=== PATIENT | female | born 1950 | race Caucasian/White ===

== ENCOUNTER → 2020-12-25 | Outpatient (CLI) | payer MEDICARE, MEDICAID ==
[~2020-12-25] MED LIST: LIDOcaine 2% 5ml jelly ONE
== END | disposition home or self-care (01) ==
LOC: WOUND CARE 12:22
PROVIDERS: ATTEND Nurse Practitioner
DX: E11.621 Type 2 diabetes mellitus with foot ulcer (principal); L97.516 Non-pressure chronic ulcer of other part of right foot with bone involvement without evidence of necrosis; E11.65 Type 2 diabetes mellitus with hyperglycemia; E11.21 Type 2 diabetes mellitus with diabetic nephropathy; I10 Essential (primary) hypertension; E78.5 Hyperlipidemia, unspecified; J44.9 Chronic obstructive pulmonary disease, unspecified; F17.210 Nicotine dependence, cigarettes, uncomplicated; F41.9 Anxiety disorder, unspecified; F32.9 Major depressive disorder, single episode, unspecified
CPT/HCPCS: G0463

== ENCOUNTER 2021-01-19 10:54 | Day surgery (SDC) | payer MEDICARE, MEDICAID ==
[~2021-01-19] VITALS: Ht 149.9 cm; Wt 54.6 kg
[2021-01-19] VITALS (9 sets, daily range): BP systolic 153–198; BP diastolic 54–108
[~2021-01-19 10:54] MED LIST changes: +ALPR0.5T9 PO; +ATOR20TA66 PO; +GABA-530 PO; +INSU100V9 SQ; -LIDOcaine 2% 5ml jelly ONE; +LISI2.5T2 PO; +METF-437 PO; +MIRT30TA8 PO; +MONT10TA32 PO; +VANCOMYCIN INJ 1000 MG in NORMAL SALINE 250ml IV.SOLN IV ONE; +famotidine 20mg tablet PO ONE; +ringers solution, lacted 1,000 ML IV SCH
[2021-01-19] MEDS ORDERED: ondansetron/PF 4mg/2ml inj IV ONE (13:45)
[2021-01-19] MEDS ORDERED: BUPIVAcaine/PF 2.5 mg/ml (0.25%) 30ml vial ONE (15:56)
[2021-01-19] MEDS ORDERED: sevoflurane 250ml liquid IH ONE (16:25)
[2021-01-19] MEDS ORDERED: ringers solution, lacted 1,000 ML IV SCH (16:25)
[2021-01-19] MEDS ORDERED: HYDROmorphone/PF 0.2 MG/ML SYRINGE IV PRN (16:25)
[2021-01-19] MEDS ORDERED: morphine 2 MG/ML inj. syringe IV PRN (16:25)
[2021-01-19] MEDS ORDERED: ondansetron/PF 4mg/2ml inj IV PRN (16:25)
[2021-01-19] MEDS ORDERED: midazolam 1 mg/ML 2ml injection ONE (16:27)
[2021-01-19] MEDS ORDERED: fentaNYL/PF 50MCG/1 ML 2ML syringe ONE (16:27)
[2021-01-19] MEDS ORDERED: propofol inj 20 ML IV ONE (16:42)
[2021-01-19] MEDS ORDERED: LIDOcaine 1%/PF 5ML 10 MG/ML VIAL ONE (16:42)
[2021-01-19] MEDS ORDERED: glycopyrrolate 0.2mg/ml inj ONE (16:43)
[2021-01-19] MEDS ORDERED: ondansetron/PF 4mg/2ml inj ONE (16:43)
[2021-01-19] MEDS ORDERED: rocuronium 10mg/ml inj IV ONE (16:43)
[2021-01-19] MEDS ORDERED: neostigmine methylsulfate 1 MG/ML 10ml vial ONE (16:43)
--- NOTE | 2021-01-19 17:26 | NUR ---
Received from OR via [facility] , accompanied by Anesthesiologist CHRIS and report given by Anesthesiolgist. PATIENT WITH 22G PIV IN LEFT UE RUNNING NS AT 10. PATIENT DENIES PAIN. LEFT FOOT DRESSING PING BANDAGE BLEEDING SLOWLY AT BALL OF FOOT. VS WNL CURRENTLY. 10L MASK ON WITH 100% SATURATIONS. Addendum: 01/19/21 at 1739 by Murray Mckinley RN, RN Amended: Links added.
[2021-01-19] MEDS ORDERED: labetalol 20mg/4ml (5mg/ml) syringe IV PRN (17:35)
[2021-01-19] MEDS ORDERED: ePHEDrine 50MG/ML INJ. ONE (17:38)
--- NOTE | 2021-01-19 18:36 | NUR ---
All dc criteria for discharge home has been met. IV taken out without complications. All questions answered regarding dc paperwork. Vss. Significant other present to take patient home. Dressings cdi and vital signs stable. Taken out via wheelchair to personal vehicle where patient taken home by family/friend. ASSISTED PATIENT IN DONNING BRACE. 2 STRAPS AT DISTAL END OF BOOT MODIFIED 2' SHORT STRAPS. GOOD FITMENT IN BOOT ACHIEVED. VSS. ASSISTED IN DRESSING. SPOKE TO MD AGUILAR WHO STATES IT'S OKAY TO BEAR WEIGHT TO THE HEEL OF THE LEFT LE ONLY. PATIENT STATES THAT SHE WILL COMPLY. DEMONSTRATED HEEL WEIGHT BEARING UPON TRANSFERS TO WHEELCHAIR AND TO VEHICLE. REVIEWED ALL DC INSTRUCTIONS WITH SISTER WHO DROVE PATIENT HOME. Addendum: 01/19/21 at 1927 by Murray Mckinley RN, RN Amended: Links added.
[2021-01-19 19:07] LABS: ISTAT CREATININE 0.9 mg/dL (0.6-1.1); ISTAT HGB 12.9 g/dl (12.0-16.0); ISTAT IONIZED CALCIUM 1.14 mmol/L (1.03-1.32)
--- NOTE | 2021-01-19 19:29 | NUR ---
ADDENDUM: MD CHRIS NO WITH RESULTS OF ISTAT AND CONFIRMS PATIENT MAY GO HOME. Addendum: 01/19/21 at 1930 by Murray Mckinley RN RN Amended: Links added.
== END 2021-01-19 18:36 | disposition home or self-care (01) ==
LOC: PAS 10:54
PROVIDERS: ATTEND Podiatrist Foot & Ankle Surgery
DX: E11.621 Type 2 diabetes mellitus with foot ulcer (principal); L97.522 Non-pressure chronic ulcer of other part of left foot with fat layer exposed; M25.872 Other specified joint disorders, left ankle and foot; F17.210 Nicotine dependence, cigarettes, uncomplicated; J44.9 Chronic obstructive pulmonary disease, unspecified; I10 Essential (primary) hypertension; F41.9 Anxiety disorder, unspecified; F32.9 Major depressive disorder, single episode, unspecified; K21.9 Gastro-esophageal reflux disease without esophagitis; Z88.0 Allergy status to penicillin; Z79.899 Other long term (current) drug therapy; Z79.4 Long term (current) use of insulin; Z98.49 Cataract extraction status, unspecified eye; Z96.652 Presence of left artificial knee joint
CPT/HCPCS: 11042; 28315; 80047; 82948; 87070; 87077; 87186; A6223; J2250; J2405; J2704; J2710; J3010; J3370; J3490; J7120; L4360; A4215; A4618; A6449; A7000

== ENCOUNTER 2021-03-28 08:30 | Outpatient (CLI) | payer MEDICARE, MEDICAID ==
[~2021-03-28] VITALS: Ht 149.9 cm; Wt 54.4 kg
[~2021-03-28 08:30] MED LIST changes: +LIDOcaine 2% 5ml jelly ONE; +MIRT-88 PO; -MIRT30TA8 PO; -VANCOMYCIN INJ 1000 MG in NORMAL SALINE 250ml IV.SOLN IV ONE; -famotidine 20mg tablet PO ONE; -ringers solution, lacted 1,000 ML IV SCH
[2021-03-28] MEDS ORDERED: METF-436 PO (10:10)
[2021-03-28] MEDS ORDERED: ASPI-83 PO (10:11)
[2021-03-28 10:34] LABS: BASOPHILS # (AUTO) 0.1 X10'3 (0-0.2); BASOPHILS % (AUTO) 1.1 % (0-1); EOSINOPHILS # (AUTO) 1.6 X10'3 (0-0.9); EOSINOPHILS % (AUTO) 16.1 % (0-6); LYMPHOCYTES # (AUTO) 2.1 X10'3 (1.1-4.8); MEAN CORPUSCULAR HEMOGLOBIN 28.5 PG (27.0-31.0); MEAN CORPUSCULAR HGB CONC 33.5 g/dL (33.0-36.5); MEAN CORPUSCULAR VOLUME 85.2 FL (78-98); MEAN PLATELET VOLUME 7.8 FL (7.4-10.4); MONOCYTES # (AUTO) 0.6 X10'3 (0-0.9); NEUTROPHILS # (AUTO) 5.7 X10'3 (1.8-7.7); NEUTROPHILS % (AUTO) 55.8 % (42-75); PRE OP HEMATOCRIT 36.2 % (35.0-45.0); PRE OP HEMOGLOBIN 12.1 g/dL (12.0-16.0); PRE OP PLATELET COUNT 230 X10'3 (140-440); RED BLOOD COUNT 4.25 X10'6 (4.20-5.60); RED CELL DISTRIBUTION WIDTH 14.4 % (11.5-14.5)
[2021-03-28 10:50] LABS: ALBUMIN 3.5 G/DL (3.4-5.0); ALBUMIN/GLOBULIN RATIO 0.8 (1.1-1.5); BLOOD UREA NITROGEN 22 MG/DL (7-18); BUN/CREATININE RATIO 22.2 (6.6-38.0); CHLORIDE 103 MMOL/L (99-107); CREATININE 0.99 MG/DL (0.40-0.90); PRE OP ALT 10 U/L (30-65); PRE OP ANION GAP 7 (8-16); PRE OP AST 12 U/L (10-37); PRE OP BILIRUB, TOTAL 0.3 MG/DL (0.0-1.0); PRE OP GLUCOSE 122 MG/DL (70-104); PRE OP POTASSIUM 4.7 MMOL/L (3.4-5.1); PRE OP SODIUM 137 MMOL/L (135-145); TOTAL CARBON DIOXIDE 26.6 MMOL/L (24-32); TOTAL PROTEIN 7.7 G/DL (6.4-8.2); eGFR 55 ML/MIN
[2021-03-28 11:16] LABS: ALKALINE PHOSPHATASE 202 IU/L (46-116)
[2021-03-30] MEDS ORDERED: ringers solution, lacted 1,000 ML IV SCH (05:00)
[2021-03-30] MEDS ORDERED: VANCOMYCIN INJ 1000 MG in NORMAL SALINE 250ml IV.SOLN IV ONE (05:30)
[2021-03-30] MEDS ORDERED: famotidine 20mg tablet PO ONE (05:30)
[2021-03-30] MEDS ORDERED: DOXY100C43 PO (13:22)
[2021-03-30] MEDS ORDERED: PRED20TA PO (13:22)
[2021-03-30] MEDS ORDERED: ALBU18HF2 INH (13:22)
== END 2021-03-28 23:59 | disposition home or self-care (01) ==
LOC: PRE-OP 08:30 → EDSTATUS 03-30 13:15
PROVIDERS: ATTEND Podiatrist Foot & Ankle Surgery
DX: Z01.818 Encounter for other preprocedural examination (principal); F17.210 Nicotine dependence, cigarettes, uncomplicated; J44.9 Chronic obstructive pulmonary disease, unspecified; F32.9 Major depressive disorder, single episode, unspecified; F41.9 Anxiety disorder, unspecified; I10 Essential (primary) hypertension; K21.9 Gastro-esophageal reflux disease without esophagitis; E11.9 Type 2 diabetes mellitus without complications; Z88.0 Allergy status to penicillin; Z96.652 Presence of left artificial knee joint; Z98.890 Other specified postprocedural states; Z79.84 Long term (current) use of oral hypoglycemic drugs; Z79.899 Other long term (current) drug therapy; Z79.82 Long term (current) use of aspirin
CPT/HCPCS: 36415; 71046; 80053; 85025; 93005; J3370; J7120

== ENCOUNTER → 2021-03-30 | Emergency (ER) | payer MEDICARE, MEDICAID ==
[~2021-03-30] VITALS: Ht 149.9 cm; Wt 54.5 kg
[~2021-03-30] MED LIST changes: +ALBU18HF2 INH; +ASPI-83 PO; -ATOR20TA66 PO; +CefTRIAXone 1000mg IM Kit (w/lidocaine diluent) IM ONE; +CefTRIAXone 2gm/D5W 50ml BAG 50 ML IV ONE; +DOXY100C43 PO; +DOXYCYCLINE 100MG CAPSULE PO STA; -GABA-530 PO; -LIDOcaine 2% 5ml jelly ONE; -LISI2.5T2 PO; +METF-436 PO; -METF-437 PO; -MIRT-88 PO; +MIRT30TA8 PO; -MONT10TA32 PO; +PRED20TA PO; +vancomycin/NS 1 GM ADD-VANTAGE 250 ML IV ONE
[2021-03-30 12:18] LABS: ALANINE AMINOTRANSFERASE 10 U/L (12-78); ALBUMIN 3.3 G/DL (3.4-5.0); ALBUMIN/GLOBULIN RATIO 0.8 (1.1-1.5); ALKALINE PHOSPHATASE 208 IU/L (46-116); ANION GAP 11 (8-16); ASPARTATE AMINO TRANSFERASE 11 U/L (10-37); BILIRUBIN,TOTAL 0.2 MG/DL (0.1-1.0); BLOOD UREA NITROGEN 17 MG/DL (7-18); BUN/CREATININE RATIO 18.1 (6.6-38.0); CHLORIDE 103 MMOL/L (99-107); CREATININE 0.94 MG/DL (0.40-0.90); GLUCOSE 119 MG/DL (70-104); POTASSIUM 4.5 MMOL/L (3.5-5.1); SODIUM 138 MMOL/L (135-145); TOTAL PROTEIN 7.7 G/DL (6.4-8.2); eGFR 59 ML/MIN
[2021-03-30 12:27] LABS: MAGNESIUM 1.9 MG/DL (1.5-2.4)
--- NOTE | 2021-03-30 12:36 | NUR ---
DIFFICULT IV START, PAGED PICC RN
[2021-03-30 12:54] LABS: BASOPHILS # (AUTO) 0.1 X10'3 (0-0.2); BASOPHILS % (AUTO) 1.3 % (0-1); EOSINOPHILS # (AUTO) 2.6 X10'3 (0-0.9); EOSINOPHILS % (AUTO) 22.4 % (0-6); HEMATOCRIT 36.8 % (35.0-45.0); LYMPHOCYTES # (AUTO) 1.8 X10'3 (1.1-4.8); LYMPHOCYTES % (AUTO) 15.7 % (21-51); MEAN CORPUSCULAR HEMOGLOBIN 28.4 PG (27.0-31.0); MEAN CORPUSCULAR HGB CONC 32.8 g/dL (33.0-36.5); MEAN CORPUSCULAR VOLUME 86.7 FL (78-98); MEAN PLATELET VOLUME 7.8 FL (7.4-10.4); MONOCYTES # (AUTO) 0.5 X10'3 (0-0.9); MONOCYTES % (AUTO) 4.8 % (2-12); NEUTROPHILS # (AUTO) 6.4 X10'3 (1.8-7.7); NEUTROPHILS % (AUTO) 55.8 % (42-75); PLATELET COUNT 240 X10'3 (140-440); RED BLOOD COUNT 4.24 X10'6 (4.20-5.60); RED CELL DISTRIBUTION WIDTH 14.2 % (11.5-14.5); WHITE BLOOD COUNT 11.4 X10'3 (4.5-11.0)
[2021-03-30 13:11] LABS: CLARITY,URINE CLEAR (Clear); COLOR,URINE STRAW (Yellow); GLUCOSE, URINE 100 mg/dl (Neg); KETONES,URINE NEGATIVE (Neg); LEUKOCYTE ESTERASE ,URINE NEGATIVE (Neg); NITRITES, URINE NEGATIVE (Neg); OCCULT BLOOD,URINE NEGATIVE (Neg); PROTEIN,URINE NEGATIVE (Neg); UROBILINOGEN,URINE 0.2 E.U/dL (0.2-1.0)
[2021-03-30 13:14] LABS: UA COLLECTION TYPE CLN CATCH MIDSTREAM
[2021-03-30 13:24] LABS: C-REACTIVE PROTEIN 1.3 MG/DL (0.0-0.5)
[2021-03-30 13:47] VITALS: BP 164/82
== END | disposition home or self-care (01) ==
LOC: ER 10:41
DX: J18.9 Pneumonia, unspecified organism (principal); R91.8 Other nonspecific abnormal finding of lung field; J44.9 Chronic obstructive pulmonary disease, unspecified; E11.9 Type 2 diabetes mellitus without complications; F17.200 Nicotine dependence, unspecified, uncomplicated; Z98.890 Other specified postprocedural states; Z88.0 Allergy status to penicillin; Z79.2 Long term (current) use of antibiotics; Z79.4 Long term (current) use of insulin
CPT/HCPCS: 36415; 71046; 80053; 81003; 82728; 83605; 83615; 83735; 83880; 84145; 85025; 85384; 86140; 87040; 93005; 96372; 99285; 99406; J0696

== ENCOUNTER 2021-06-08 13:07 | Day surgery (SDC) | payer MEDICARE, MEDICAID ==
[2021-06-04 16:03] LABS: BASOPHILS # (AUTO) 0.1 X10'3 (0-0.2); BASOPHILS % (AUTO) 0.9 % (0-1); EOSINOPHILS # (AUTO) 0.3 X10'3 (0-0.9); EOSINOPHILS % (AUTO) 2.8 % (0-6); LYMPHOCYTES # (AUTO) 2.9 X10'3 (1.1-4.8); MEAN CORPUSCULAR HEMOGLOBIN 29.4 PG (27.0-31.0); MEAN CORPUSCULAR HGB CONC 33.9 g/dL (33.0-36.5); MEAN CORPUSCULAR VOLUME 86.7 FL (78-98); MEAN PLATELET VOLUME 8.5 FL (7.4-10.4); MONOCYTES # (AUTO) 0.6 X10'3 (0-0.9); MONOCYTES % (AUTO) 6.5 % (2-12); NEUTROPHILS # (AUTO) 5.9 X10'3 (1.8-7.7); NEUTROPHILS % (AUTO) 59.8 % (42-75); PRE OP HEMATOCRIT 34.4 % (35.0-45.0); PRE OP HEMOGLOBIN 11.7 g/dL (12.0-16.0); PRE OP PLATELET COUNT 209 X10'3 (140-440); RED BLOOD COUNT 3.97 X10'6 (4.20-5.60); RED CELL DISTRIBUTION WIDTH 14.4 % (11.5-14.5)
[2021-06-04 16:09] LABS: ALBUMIN 3.6 G/DL (3.4-5.0); ALBUMIN/GLOBULIN RATIO 0.9 (1.1-1.5); ALKALINE PHOSPHATASE 182 IU/L (46-116); BLOOD UREA NITROGEN 28 MG/DL (7-18); BUN/CREATININE RATIO 16.5 (6.6-38.0); CALCIUM 8.5 MG/DL (8.5-10.1); CHLORIDE 106 MMOL/L (99-107); PRE OP ALT 9 U/L (30-65); PRE OP ANION GAP 9 (8-16); PRE OP AST 9 U/L (10-37); PRE OP BILIRUB, TOTAL 0.3 MG/DL (0.0-1.0); PRE OP GLUCOSE 112 MG/DL (70-104); PRE OP POTASSIUM 4.3 MMOL/L (3.4-5.1); PRE OP SODIUM 140 MMOL/L (135-145); TOTAL CARBON DIOXIDE 25.2 MMOL/L (24-32); TOTAL PROTEIN 7.5 G/DL (6.4-8.2); eGFR 30 ML/MIN
[2021-06-04 16:15] LABS: CLARITY,URINE CLEAR (Clear); COLOR,URINE YELLOW (Yellow); GLUCOSE, URINE NEGATIVE (Neg); KETONES,URINE NEGATIVE (Neg); LEUKOCYTE ESTERASE ,URINE NEGATIVE (Neg); NITRITES, URINE NEGATIVE (Neg); OCCULT BLOOD,URINE NEGATIVE (Neg); PH,URINE 5.5 (4.8-8.0); PROTEIN,URINE NEGATIVE (Neg); UROBILINOGEN,URINE 0.2 E.U/dL (0.2-1.0)
[2021-06-04 17:15] LABS: UA COLLECTION TYPE NON-SPECIFIED
[2021-06-08] VITALS (8 sets, daily range): BP systolic 149–166; BP diastolic 60–103
[~2021-06-08] VITALS: Ht 149.9 cm; Wt 54.2 kg
[~2021-06-08 13:07] MED LIST changes: -ASPI-83 PO; -CefTRIAXone 1000mg IM Kit (w/lidocaine diluent) IM ONE; -CefTRIAXone 2gm/D5W 50ml BAG 50 ML IV ONE; -DOXY100C43 PO; -DOXYCYCLINE 100MG CAPSULE PO STA; -MIRT30TA8 PO; -PRED20TA PO; +VANCOMYCIN INJ 1000 MG in NORMAL SALINE 250ml IV.SOLN IV ONE; +famotidine 20mg tablet PO ONE; +ringers solution, lacted 1,000 ML IV SCH; -vancomycin/NS 1 GM ADD-VANTAGE 250 ML IV ONE
[2021-06-08] MEDS ORDERED: bacitracin 15gm ointment TP ONE ×2 (16:22→17:13)
[2021-06-08] MEDS ORDERED: fentaNYL/PF 50MCG/1 ML 2ML syringe ONE (16:29)
[2021-06-08] MEDS ORDERED: midazolam 1 mg/ML 2ml injection ONE (16:29)
[2021-06-08] MEDS ORDERED: hydrALAZINE 20mg/ml inj. IV PRN (16:35)
[2021-06-08] MEDS ORDERED: sevoflurane 250ml liquid IH ONE (16:35)
[2021-06-08] MEDS ORDERED: fentaNYL/PF 50MCG/1 ML 2ML syringe IV PRN ×2 (16:35)
[2021-06-08] MEDS ORDERED: ringers solution, lacted 1,000 ML IV SCH (16:35)
[2021-06-08] MEDS ORDERED: LIDOcaine 1%/PF 5ML 10 MG/ML VIAL ONE (16:35)
[2021-06-08] MEDS ORDERED: morphine 4 MG/ML inj SYRINge IV PRN (16:35)
[2021-06-08] MEDS ORDERED: morphine 2 MG/ML inj. syringe IV PRN (16:35)
[2021-06-08] MEDS ORDERED: propofol 10mg/ml 20ml vial IV ONE (16:35)
[2021-06-08] MEDS ORDERED: labetalol 20mg/4ml (5mg/ml) syringe IV PRN (16:35)
[2021-06-08] MEDS ORDERED: ondansetron/PF 4mg/2ml inj IV PRN (16:35)
[2021-06-08] MEDS ORDERED: BUPIVAcaine/PF 2.5mg/ml (0.25%) 10ml vial ONE (17:09)
[2021-06-08] MEDS ORDERED: naloxone 0.4 mg/ml inj ONE (17:13)
[2021-06-08] MEDS ORDERED: ondansetron/PF 4mg/2ml inj ONE (17:26)
[2021-06-08] MEDS ORDERED: dexamethasone sod phosphate 4mg/ml inj. ONE (17:26)
--- NOTE | 2021-06-08 17:43 | NUR ---
Received from OR via , accompanied by Anesthesiologist DR ADAME and report given by Anesthesiolgist. AWAKENS TO VOICE VITALS STABLE. DRESSING DI. LEBRON PAIN.
--- NOTE | 2021-06-08 19:03 | NUR ---
AWAKE AND ORIENTED. VITALS STABLE. DRESSING DI. LEBRON PAIN. HOME WITH HER SISTER AT THIS TIME.
== END 2021-06-08 19:03 | disposition home or self-care (01) ==
LOC: PAS 13:07
PROVIDERS: ATTEND Podiatrist Foot & Ankle Surgery
DX: E11.69 Type 2 diabetes mellitus with other specified complication (principal); M86.8X7 Other osteomyelitis, ankle and foot; L03.116 Cellulitis of left lower limb; E11.21 Type 2 diabetes mellitus with diabetic nephropathy; Z20.822 Contact with and (suspected) exposure to COVID-19; J44.9 Chronic obstructive pulmonary disease, unspecified; F41.9 Anxiety disorder, unspecified; F17.210 Nicotine dependence, cigarettes, uncomplicated; Z98.890 Other specified postprocedural states; Z79.899 Other long term (current) drug therapy; Z79.4 Long term (current) use of insulin; Z88.0 Allergy status to penicillin
CPT/HCPCS: 28810; 36415; 80053; 81003; 82948; 85025; 93005; A6223; J1100; J2250; J2310; J2405; J3010; J3370; J3490; J7120; L4360; U0003; U0005; Z7506; Z7508; Z7512; A4215; A4618; A6253; A6449; A7000; J2704

== ENCOUNTER 2021-06-12 14:49 | Emergency (ER) | payer MEDICARE, MEDICAID ==
[~2021-06-12] VITALS: Ht 149.9 cm; Wt 54.5 kg
[~2021-06-12 14:49] MED LIST changes: -VANCOMYCIN INJ 1000 MG in NORMAL SALINE 250ml IV.SOLN IV ONE; -famotidine 20mg tablet PO ONE; -ringers solution, lacted 1,000 ML IV SCH
[2021-06-12 15:03] VITALS: BP 163/69
--- NOTE | 2021-06-12 19:28 | NUR ---
Pt stated her sister will come pick her up after she is done loading some things, as she is being evacuated from her home. Sister was notified that pt was being discharged. Pt was given option to call and book a hotel, and that we would pay for a cab to take her there. Pt stated she would rather wait in the lobby for her sister to arrive. Pt has her cell phone on her person.
== END 2021-06-12 19:34 | disposition home or self-care (01) ==
LOC: ER 14:53
DX: Z02.89 Encounter for other administrative examinations (principal); M86.9 Osteomyelitis, unspecified; J44.9 Chronic obstructive pulmonary disease, unspecified; E11.9 Type 2 diabetes mellitus without complications; Z98.890 Other specified postprocedural states; Z88.0 Allergy status to penicillin; Z79.4 Long term (current) use of insulin; Z79.899 Other long term (current) drug therapy
CPT/HCPCS: 99281

== ENCOUNTER → 2024-05-14 | Day surgery (SDC) | payer MEDICARE, MEDICAID, OTHER | END | disposition home or self-care (01) | LOC: SSTAY O 11:18 | PROVIDERS: ATTEND Nurse Practitioner Family | DX: J18.9 Pneumonia, unspecified organism (principal); I12.9 Hypertensive chronic kidney disease with stage 1 through stage 4 chronic kidney disease, or unspecified chronic kidney disease; E11.22 Type 2 diabetes mellitus with diabetic chronic kidney disease; N18.30 Chronic kidney disease, stage 3 unspecified; J44.9 Chronic obstructive pulmonary disease, unspecified; K21.9 Gastro-esophageal reflux disease without esophagitis; F41.9 Anxiety disorder, unspecified; F32.A Depression, unspecified; M10.9 Gout, unspecified; Z79.899 Other long term (current) drug therapy; Z90.49 Acquired absence of other specified parts of digestive tract; Z90.89 Acquired absence of other organs; Z96.652 Presence of left artificial knee joint; Z98.49 Cataract extraction status, unspecified eye; Z98.890 Other specified postprocedural states; Z88.0 Allergy status to penicillin; Z82.49 Family history of ischemic heart disease and other diseases of the circulatory system | CPT/HCPCS: 36410; 76942; C1751 ==